=== PATIENT | female | born 1995 | race Caucasian/White ===

== ENCOUNTER 2019-03-07 05:24 | Inpatient (IN) | payer MEDICARE ==
[~2019-03-07] VITALS: Ht 170.2 cm; Wt 84.8 kg
[2019-03-07 06:27] VITALS: BP 114/70; Ht 170.2 cm; Wt 84.8 kg
[2019-03-07] MEDS ORDERED: PRENAVITE1 TAB PO (06:27)
[2019-03-07 08:59] LABS: HEMATOCRIT 27.5 % (36.0-48.0); HEMOGLOBIN 8.7 g/dL (12-16); MCH 26.3 pg (26.0-34.0); MCHC 31.6 g/dL (31.0-37.0); MCV 83.1 fL (80.0-100.0); RBC 3.31 10x6/uL (4.00-5.40); RDW 14.3 % (11.5-14.5); WBC 11.1 10x3/uL (4.8-10.8)
[2019-03-07 09:00] LABS: UDS - AMPHET NEGATIVE QUAL (NEGATIVE); UDS - BARB NEGATIVE QUAL (NEGATIVE); UDS - BENZO NEGATIVE QUAL (NEGATIVE); UDS - COCAINE NEGATIVE QUAL (NEGATIVE); UDS - OPIATE NEGATIVE QUAL (NEGATIVE); UDS - PCP NEGATIVE QUAL (NEGATIVE); UDS - THC NEGATIVE QUAL (NEGATIVE)
[2019-03-07 09:26] LABS: APPEARANCE SL CLDY (CLEAR); BACTERIA MANY /hpf (NEGATIVE); BILIRUBIN NEGATIVE (NEGATIVE); COLOR YELLOW (YELLOW); GLUCOSE NEGATIVE (NEGATIVE); KETONE NEGATIVE (NEGATIVE); MUCUS <1+ /lpf (NONE SEEN); NITRITE NEGATIVE (NEGATIVE); PROTEIN NEGATIVE (NEGATIVE); RED CELLS - URINE 0-5 /hpf (0-5); UROBILINOGEN NORMAL (NORMAL); WHITE CELLS - URINE 0-5 /hpf (NEGATIVE)
--- NOTE | 2019-03-07 19:11 | NUR ---
BEDSIDE SHIFT REPORT. DENIES ANY PAIN. EATING FOOD BROUGHT FROM OUTSIDE. LYING ON BACK WITH HOB AT 45 DEGREES. IV OF NS WITH 20U PITOCIN INFUSING AT 50CC/HR.
[2019-03-07 19:35] VITALS: BP 120/76
--- NOTE | 2019-03-07 19:35 | NUR ---
VITAL SIGNS OBTAINED. IV SALINE LOCKED. PT. REPORTS URGE TO VOID. UP TO BATHROOM WITHOUT ASSISTANCE. VOIDED. GOWN CHANGED AND JASIEL PADS AND PANTIES APPLIED. PT. WITH STEADY GAIT. TRANSFERRED TO [facility].
--- NOTE | 2019-03-07 19:45 | NUR ---
PT. RECEIVED TO 1273 AMBULATORY. PT. ORIENTED TO ROOM, CALL SYSTEM, BED CONTROL AND TEMP. CONTROL. INTO BED. PT. COMMENTS THAT BED IS MUCH MORE COMFORTABLE. FUNDUS FIRM AND MIDLINE. FOB ASSISTED TO MAKE SOFA INTO BED. LINENS PROVIDED. SIDE RAILS UP X2 AND CALL LIGHT WITHIN REACH. DENIES ANY NEEDS.
--- NOTE | 2019-03-07 20:44 | NUR ---
PT. LYING ON BACK WITH EYES CLOSED. RESPIRATIONS UNLABORED. IN OPEN CRIB AT BEDSIDE. FOB LYING ON SOFA BESIDE BED.
--- NOTE | 2019-03-07 22:30 | NUR ---
LYING ON BACK WITH EYES CLOSED. RESPIRATIONS UNLABORED. FOB LYING ON SOFA SLEEPING. INFANT IN OPEN CRIB AT BEDSIDE.
--- NOTE | 2019-03-08 01:33 | NUR ---
HOLDING AT PRESENT. PT. DENIES ANY NEEDS.
--- NOTE | 2019-03-08 03:27 | NUR ---
LYING ON BACK WITH EYES CLOSED. RESPIRATIONS UNLABORED.
--- NOTE | 2019-03-08 04:53 | NUR ---
UP TO BATHROOM AND VOIDED. DENIES ANY NEEDS. GAIT STEADY. FOB ASLEEP ON SOFA AT BEDSIDE.
[2019-03-08 06:48] LABS: BASOPHILS 0.1 % (0-2); EOSINOPHILS 0 % (0-7); HEMATOCRIT 30.1 % (36.0-48.0); HEMOGLOBIN 9.4 g/dL (12-16); IMMATURE GRANULOCYTES 0.4 % (0-5); LYMPHOCYTES 19.4 % (15-50); MCHC 31.2 g/dL (31.0-37.0); MCV 83.4 fL (80.0-100.0); MEAN PLATELET VOLUME 10.9 fL (7.4-10.4); MONOCYTES 11.3 % (2-11); NEUTROPHILS 68.8 % (40-80); PLATELET COUNT 346 10x3/uL (130-400); RBC 3.61 10x6/uL (4.00-5.40); RDW 14.4 % (11.5-14.5)
[2019-03-08 08:11] LABS: RAPID PLASMA REAGIN Non Reactive (Non Reactive)
--- NOTE | 2019-03-08 08:11 | NUR ---
PT DENIES PAIN OR DISCOMFORT, SHE STATES UNDERSTANDING THAT SHE HAS MOTRIN AND TYLENOL ORDERED IF NEEDED JUST CALL FOR NURSE. ASSESSMENT COMPLETED CHARTED ON FLOWSHEET. FUNDUS FIRM AT U/1 WITH LIGHT BLEEDING TO JASIEL PAD, SHDE DENIES CLOTS WITH VOID. REGULAR DIET
--- NOTE | 2019-03-08 10:30 | NUR ---
DENIES PAIN OR DISCOMFORT. IN CRIB AT BEDSIDE.
--- NOTE | 2019-03-08 12:30 | NUR ---
LARGE CUP OF ICE PER REQUEST. NO OTHER NEEDS VOICED. RATES PAIN AT 0/10
--- NOTE | 2019-03-08 14:50 | NUR ---
PT AND SIG OTHER AMB WITH TO NBN, BOTH THAN AMB OFF UNIT TO VENDING AREA RETURN TO UNIT QUICKLY AND GO TO NURSERY. BACK TO ROOM WITH IN CRIB.
--- NOTE | 2019-03-08 16:45 | NUR ---
VERBAL AND WRITTEN DISCHARGE INSTRUCTIONS GONE OVER WITHOUT QUESTIONS OR CONCERNS FROM PT. SHE STATES UNDERSTANDS TO TAKE MOTRIN FOR PAIN RELIEF IF NEEDED. WAITING ON LAB WORK FOR BEFORE THEY CAN LEAVE.
--- NOTE | 2019-03-08 17:45 | NUR ---
CALLED TO ROOM, INFANT SECURED IN CARRIER. PT DENIES WHEELCHAIR, AMB OFF UNIT WITH SPOUSE AND INFANT. HOME BY PRIVATE CAR.
== END 2019-03-08 16:45 | disposition home or self-care (01) | DRG 807 ==
LOC: D.LD 05:24
PROVIDERS: ADMIT Obstetrics & Gynecology; ATTEND Obstetrics & Gynecology
PROC: 10E0XZZ Delivery of Products of Conception, External Approach (ICD-10-PCS; principal; 2019-03-07)
DX: O99.334 Smoking (tobacco) complicating childbirth (principal); Z37.0 Single live birth; Z3A.39 39 weeks gestation of pregnancy